=== PATIENT | male | born 1950 | race Caucasian/White ===

== ENCOUNTER → 2016-08-20 | Outpatient (CLI) | payer MEDICARE, BC ==
[~2016-08-20] MED LIST: FAMOTIDINE INJ/PF 20 MG/2 ML SDV IV ONE
--- NOTE | 2016-08-20 10:52 | ST Modified Barium Swallow ---
Recommendation - Recommendations Recommendations: 1) DIET: Recommend continue current diet. 2) STRATEGIES: Head turn to right side on solids followed by swallow of thin with head turn to clear residuals from valleculae. 3) THERAPY: Recommend outpatient speech therapy targeting pharyngeal strengthening. SUMMARY: Pt presents with mild- moderate oropharyngeal dysphagia characterized by reduced epiglottic inversion, reduced base of tongue, trace residuals of thin and moderate residuals of solids in valleculae. Head turn to right observed to be effective in clearing residuals. Pt reported globus sensation when residuals present during study, indicating good sensation. Consider speech therapy for dysphagia therapy. Medical Diagnoses - Medical Diagnoses Medical Diagnosis Description & ICD-10 Code(s): dysphagia r13.10 Other Medical Diagnoses/Co-Morbidities: small hiatal hernia, quadruple bypass, back surgery around L4-5, kidney issues, osteoarthritis - ICD-10 Tx Diagnosis Coding (1) Dysphagia, oropharyngeal phase ICD-10 Code(s): R13.12 - DYSPHAGIA, OROPHARYNGEAL PHASE ST Modified Barium Swallow - General Date: 08/20/16 Referring Physician: Dr Andrea Cervantes Risks/Precautions: None Date of Onset: 08/20/15 Reason for Referral: dysphagia - History History obtained from: Patient -: Medical - Pt reports difficulty swallowing, food has "difficulty going down" , and reports globus sensation on left side of neck. Pt believes possibly due to "post-nasal drip". Pt states has little difficulty with cereal, eggs, etc. However has difficulty with steak and cheeseburgers, etc. Pt denies coughing or choking, or history of PNA or bronchitis. PMHx: back surgery, kidney issuse, osteoarthritis, quadruple bypass, small hiatal hernia. Medications: oxycodone and benedryl PRN, gabapentin, steroid injections, levothyroxine, losartan. Allergies: reports takes benedryl when taking oxycodone due to rash. - Functional Status Prior Functional Status: INDEPENDENT: feeding Current Functional Limitations: feeding - Subjective Patient/caregiver goal(s): safe swallow, r/o aspiration Cognitive-Linguistic Function: WNL Speech Intelligibility: WNL Current Nutritional Means: PO Current PO diet: Regular Pain: 1/5 - right leg pain - Objective Assessment: Upright, Left Lateral, A-P Position - Food Trials Used Food trials used: Thin liquids, Pureed, Regular The patient: Was Able to Self Feed, via cup, via spoon, via straw - Oral-Motor Skills Dentition: Partial Velo-pharyngeal function: Unremarkable Laryngeal Function: Volitional Cough, Throat Clear, Volitional Swallow - Assessment Oral prep: Normal Labial closure: Adequate Leakage: None Mastication: Adequate Lingual Movement: Normal Oral stage: Normal for this Procedure - Pharyngeal Stage Initiation of Pharyngeal Stage Reflex: Normal Decreased laryngeal elevation: Yes - mild Reduced Velopharyngeal Closure: no Reduced pressure generation: No reduced tongue-based retraction: Yes - moderate Pre-swallow pooling in valleculae: None Pre-Swallow pooling in pyriforms: None Reduced Thyro-Hyoid approximation: Yes - mild Reduced epiglottic excursion: Yes - moderate-severe Reduced pharyngeal peristalsis/contraction: No Post-swallow residulas vallecular: Moderate - trace on thin, moderate on solids Post-Swallow residuals in pyriforms: None Reduced Cricopharyngeal opening: No - Fall Risk Assessment Medications/Conditions that increase fall risks include: Antidepressants, sedatives, anti-arrhythmic, diuretic, benzodiazipenes, neuroleptics. BP regulation problems, cardiac problems, balance or gait deficits, neurological problems. Is patient considered at risk for falls: no Fall Risk Actions Taken: No action needed - Behavioral Observations During evaluation process patient: was pleasant, was cooperative, able to answer questions, provided medical history - Treatment / Educational Needs: Treatment/Education Needs: Treatment consisted of patient education on the role of the Speech Pathologist. Patient's plan of care and golas were communicated as well as scheduling and attendance policies. Recommendations for initial home program were shared. Patient demonstrated understanding and verbalized agreement. Initial home program recommendations: Pt provided with verbal and written instruction on recommendations, aspiration PNA, and dysphaga. Pt asked appropriate questions. - Impression/Summary Laryngeal Penetration: No Tracheal Aspiration: no Effective compensatory strategies: head turn-right Ineffective compensatory strategies: chin tuck, hard swallow Patient presents with: Oral-Pharyngeal dysph. - mild-moderate Risk of Aspiration: Mild - Recommendations NPO: no Solid diet recommendations: Regular Liquid Diet Modification: Thin Pt/Family education and followup with MD: Yes Dysphagia therapy with [employer]OR: yes, dysphagia therapy Recommended techniques: Fully Upright During Meal Information, Precautions and Recommendations: Patient (Written), Patient (Verbal ) - Time Total Time: 25 - Plan of Care Strategies to optimize patient understanding include:: ongoing assessment of educational needs, implementation of educational strategies, and re-education. - - -: Thank you for the opportunity to work with this patient and his/her family. Should you have any questions about this patient's plan or progress, I can be reached at [phone]. Charge G Code? - - -: Yes [facility] Impairment Category - Rationale Based On Rationale Based On: Clin Find., Obj Measures - Swallowing Current G8996: CJ 20-39% Impaired Goal G8997: CJ 20-39% Impaired Discharge G8998: CJ 20-39% Impaired
== END ==
LOC: RAD 07:19
PROVIDERS: ATTEND Otolaryngology
DX: R13.12 Dysphagia, oropharyngeal phase (principal)
CPT/HCPCS: 74230; 92611; S0028; G8996; G8997; G8998